=== PATIENT | male | born 1960 | race Caucasian/White ===

== ENCOUNTER → 2016-10-28 | Outpatient (CLI) | payer OTHER ==
[~2016-10-28] MED LIST: AMIT25TA9 PO; DICY20TA10 PO; LISI10TA PO; PRLSR20 PO
[2016-10-28 12:37] LABS: ALT/SGPT 45 U/L (12-78); BLOOD UREA NITROGEN 28 mg/dl (7-18); BUN/CREATININE RATIO 21.2 (10-20); CALCIUM 8.9 mg/dl (8.5-10.1); CARBON DIOXIDE 24 mmol/L (21-32); CHLORIDE 106 mmol/L (98-107); GLUCOSE 89 mg/dl (70-99); POTASSIUM 4.2 mmol/L (3.5-5.1); SODIUM 139 mmol/L (136-145)
[2016-10-28 12:48] LABS: ALB/GLOB RATIO 1.3 (0.9-2); ALKALINE PHOSPHATASE 70 U/L (45-117); AST/SGOT 28 U/L (15-37); PROSTATE SPECIFIC ANTIGEN 0.397 ng/ml (0.000-4.000)
== END | disposition home or self-care (01) ==
LOC: C.LAB1850 09:10
PROVIDERS: ATTEND Internal Medicine
DX: Z12.5 Encounter for screening for malignant neoplasm of prostate (principal); I10 Essential (primary) hypertension; R94.6 Abnormal results of thyroid function studies; Z11.59 Encounter for screening for other viral diseases

== ENCOUNTER → 2017-04-14 | Outpatient (CLI) | payer OTHER | END | disposition home or self-care (01) | LOC: C.LAB1850 17:02 | PROVIDERS: ATTEND Internal Medicine | DX: E03.9 Hypothyroidism, unspecified (principal) ==

== ENCOUNTER → 2017-04-15 | Outpatient (CLI) | payer OTHER ==
--- NOTE | 2017-04-15 09:58 | DIAGNOSTIC IMAGING REPORT ---
L SHOULDER MIN 2 VIEWS ROUTINE HISTORY: 57 years-old Male M25.512 Left shoulder [id number] acute left shoulder pain COMPARISON: None available TECHNIQUE: 3 views of the left shoulder FINDINGS: Mild acromioclavicular and glenohumeral degenerative changes without acute fracture, dislocation or intra-articular loose body. Imaged lung nagy are clear. No opaque foreign body. IMPRESSION: Mild degenerative changes without acute fracture or dislocation. The above report was generated using voice recognition software. It may contain grammatical, syntax or spelling errors. Electronically signed by: Mike Alberto M.D. 04/15/2017 9:56 AM Dictated Date/Time: 04/15/2017 9:55 AM
== END | disposition home or self-care (01) ==
LOC: C.RAD 09:20
PROVIDERS: ATTEND Internal Medicine
DX: M25.512 Pain in left shoulder (principal)